=== PATIENT | female | born 1965 | race Caucasian/White ===

== ENCOUNTER 2023-11-03 14:24 | Emergency (ER) | payer BC, MEDICAID, OTHER | END 2023-11-03 19:52 | disposition home or self-care (01) | LOC: MW.ED 14:24 | DX: M79.605 Pain in left leg (principal); I10 Essential (primary) hypertension; Z79.899 Other long term (current) drug therapy | CPT/HCPCS: 93925; 93925-26; 93971-26-LT; 93971-LT; 99282; 99283 ==